=== PATIENT | female | born 1995 | race Two or more races ===

== ENCOUNTER 2016-10-23 10:58 | Emergency (ER) | payer SELFPAY ==
--- NOTE | 2016-10-23 11:28 | ER Document Report ---
ED Medical Screen (RME) - General Chief Complaint: Abdominal Pain >50 Stated Complaint: ABDOMINAL PAIN Time Seen by Provider: 10/23/16 11:26 Mode of Arrival: Ambulatory Information source: Patient - HPI Patient complains to provider of: lower abd pain Onset: Other - pt with c/o bilateral low abd pain for the past several days with vaginal d/c. Denies vaginal bleeding. May be . - Related Data Allergies/Adverse Reactions: No Known Allergies Allergy (Unverified 10/23/16 11:17) Past Medical History - Social History Chew tobacco use (# tins/day): No Frequency of alcohol use: Occasional Drug Abuse: None Renal/ Medical History: Denies: Hx Peritoneal Dialysis Past Surgical History: Reports: Hx Gynecologic Surgery - ovarian cysts removal - Immunizations Hx Diphtheria, Pertussis, Tetanus Vaccination: Yes Physical Exam - Vital signs Vitals: Temp Pulse Resp BP Pulse Ox 99.0 F 89 14 114/69 100 10/23/16 11:12 10/23/16 11:12 10/23/16 11:12 10/23/16 11:12 10/23/16 11:12 Course - Vital Signs Vital signs: Temp Pulse Resp BP Pulse Ox 99.0 F 89 14 114/69 100 10/23/16 11:12 10/23/16 11:12 10/23/16 11:12 10/23/16 11:12 10/23/16 11:12
[2016-10-23 11:58] LABS: ABSOLUTE EOSINOPHILS # (AUTO) 0.1 10^3/uL (0.0-0.6); ABSOLUTE LYMPHOCYTES (AUTO) 2.1 10^3/uL (0.5-4.7); ABSOLUTE MONOCYTES (AUTO) 0.6 10^3/uL (0.1-1.4); ABSOLUTE NEUT (AUTO) 4.9 10^3/uL (1.7-8.2); BASOPHILS % (AUTO) 0.5 % (0-2); HEMOGLOBIN 13.3 g/dL (12.0-15.5); HGB HCT DIFFERENCE 1.9; LYMPHOCYTES % (AUTO) 27.7 % (13-45); MEAN CORPUSCULAR HEMOGLOBIN 30.1 pg (27.0-33.4); MEAN CORPUSCULAR HGB CONC 34.8 g/dL (32.0-36.0); MEAN CORPUSCULAR VOLUME 86 fl (80-97); MONOCYTES % (AUTO) 8.3 % (3-13); RED CELL DISTRIBUTION WIDTH 13.5 % (11.5-14.0); SEGMENTED NEUTROPHILS % (AUTO) 62.5 % (42-78); WHITE BLOOD COUNT 7.8 10^3/uL (4.0-10.5)
[2016-10-23 12:08] LABS: AMORPHOUS SEDIMENT,URINE TRACE /HPF; APPEARANCE,URINE TURBID; BILIRUBIN,URINE NEGATIVE (NEGATIVE); GLUCOSE, URINE NEGATIVE (NEGATIVE); KETONES,URINE NEGATIVE (NEGATIVE); LEUKOCYTE ESTERASE,URINE TRACE (NEGATIVE); NITRITE,URINE NEGATIVE (NEGATIVE); PROTEIN,URINE NEGATIVE (NEGATIVE); URINE SPECIFIC GRAVITY 1.016; UROBILINOGEN,URINE NEGATIVE mg/dL (<2.0)
[2016-10-23 12:11] LABS: ALANINE AMINOTRANSFERASE 25 U/L (9-52); ALBUMIN 4.9 g/dL (3.5-5.0); ALKALINE PHOSPHATASE 78 U/L (38-126); ANION GAP 13 (5-19); ASPARTATE AMINO TRANSFERASE 20 U/L (14-36); BILIRUBIN,DIRECT 0.4 mg/dL (0.0-0.4); BILIRUBIN,TOTAL 0.5 mg/dL (0.2-1.3); BLOOD UREA NITROGEN 12 mg/dL (7-20); CALCIUM 9.8 mg/dL (8.4-10.2); CARBON DIOXIDE 26 mmol/L (22-30); CHLORIDE 102 mmol/L (98-107); CREATININE RESULT 0.78 mg/dL (0.52-1.25); GLUCOSE 77 mg/dL (75-110); POTASSIUM 4.2 mmol/L (3.6-5.0); SODIUM 140.7 mmol/L (137-145); TOTAL PROTEIN 7.6 g/dL (6.3-8.2)
--- NOTE | 2016-10-23 13:06 | ER Document Report ---
ED GI/ - General Chief Complaint: Abdominal Pain >50 Stated Complaint: ABDOMINAL PAIN Time Seen by Provider: 10/23/16 11:26 Mode of Arrival: Ambulatory Information source: Patient - HPI Patient complains to provider of: Pelvic pain Onset: Last week Timing/Duration: Gradual, Persistent Quality of pain: Achy Severity at maximum: Moderate Severity in ED: Moderate Pain Level: 3 Location: Pelvis Vaginal bleeding (Compared to normal period): None Associated symptoms: Vaginal discharge Exacerbated by: Denies Relieved by: Denies Similar symptoms previously: Yes Recently seen / treated by doctor: No Notes: 10/23/16 18:04 She is a 21-year-old female who recently moved to the area from [place], presents to the emergency room complaining of one-week history of pelvic pain with thick white vaginal discharge with a slight odor, she reports a history of irregular menstrual cycles, she has occasional dizziness, denies any fever or chills, no nausea or vomiting, she did have slight dysuria yesterday, patient reports a history of bacterial vaginosis with similar symptoms previously - Related Data Allergies/Adverse Reactions: No Known Allergies Allergy (Unverified 10/23/16 11:17) Home Medications: Current Home Medications Cranberry [Cranberry 400 mg Capsule] 400 mg PO DAILY 10/23/16 [History] L.acidoph,Paracasei, B.lactis [Probiotic] 1 each PO DAILY 10/23/16 [History] Multivitamin [Multivitamins] 1 each PO DAILY 10/23/16 [History] Past Medical History - General Information source: Patient - Social History Smoking Status: Current Every Day Smoker Chew tobacco use (# tins/day): No Frequency of alcohol use: Occasional Drug Abuse: None Family History: Reviewed & Not Pertinent Renal/ Medical History: Denies: Hx Peritoneal Dialysis Past Surgical History: Reports: Hx Gynecologic Surgery - ovarian cysts removal - Immunizations Hx Diphtheria, Pertussis, Tetanus Vaccination: Yes Review of Systems - Review of Systems Constitutional: No symptoms reported EENT: No symptoms reported Cardiovascular: No symptoms reported Respiratory: No symptoms reported Gastrointestinal: No symptoms reported Genitourinary: No symptoms reported Female Genitourinary: See HPI Musculoskeletal: No symptoms reported Skin: No symptoms reported Hematologic/Lymphatic: No symptoms reported Neurological/Psychological: No symptoms reported -: Yes All other systems reviewed and negative Physical Exam - Vital signs Vitals: Temp Pulse Resp BP Pulse Ox 99.0 F 89 14 114/69 100 10/23/16 11:12 10/23/16 11:12 10/23/16 11:12 10/23/16 11:12 10/23/16 11:12 Interpretation: Normal - General General appearance: Appears well, Alert - HEENT Head: Normocephalic, Atraumatic Eyes: Normal Pupils: PERRL - Respiratory Respiratory status: No respiratory distress Chest status: Nontender Breath sounds: Normal Chest palpation: Normal - Cardiovascular Rhythm: Regular Heart sounds: Normal auscultation Murmur: No - Abdominal Inspection: Normal Distension: No distension Bowel sounds: Normal Tenderness: Nontender Organomegaly: No organomegaly - Genitourinary External exam: Normal Speculum exam: Vaginal discharge - milky white Vaginal bleeding: None Bimanuel exam: Adnexal tenderness - left - Back Back: Normal, Nontender - Extremities General upper extremity: Normal inspection, Nontender, Normal color, Normal ROM , Normal temperature General lower extremity: Normal inspection, Nontender, Normal color, Normal ROM , Normal temperature, Normal weight bearing. No: Karuna's sign - Neurological Neuro grossly intact: Yes Cognition: Normal Orientation: AAOx4 [place] Coma Scale Eye Opening: Spontaneous [place] Coma Scale Verbal: Oriented [place] Coma Scale Motor: Obeys Commands [place] Coma Scale Total: 15 Speech: Normal Motor strength normal: LUE, RUE, LLE, RLE Sensory: Normal - Psychological Associated symptoms: Normal affect, Normal mood - Skin Skin Temperature: Warm Skin Moisture: Dry Skin Color: Normal Course - Re-evaluation Re-evalutation: 10/23/16 18:05 Lab findings were discussed with patient at bedside which are unremarkable physical exam findings are consistent with bacterial vaginosis and placement was started on Flagyl for this, advised to follow-up with ENGINEERING SCIENTIST or return if symptoms worsen, patient acknowledges understanding and agreement with this plan 10/23/16 18:07 - Vital Signs Vital signs: Temp Pulse Resp BP Pulse Ox 98.7 F 85 14 112/65 100 10/23/16 14:46 10/23/16 14:46 10/23/16 14:46 10/23/16 14:46 10/23/16 14:46 - Laboratory Result Diagrams: 10/23/16 11:40 10/23/16 11:40 Laboratory results interpreted by me: 10/23/16 11:40 Ur Leukocyte Esterase TRACE H Discharge - Discharge Clinical Impression: Bacterial vaginosis Condition: Stable Disposition: HOME, SELF-CARE Instructions: Vaginosis, Bacterial ([facility]) Additional Instructions: Follow up with your primary care provider in one to 2 days. Return to the emergency room immediately if symptoms worsen or any additional concerns. Prescriptions: Metronidazole [Flagyl 500 mg Tablet] 500 mg PO TID #30 tablet
[2016-10-23 14:48] VITALS: BP 112/65
[2016-10-23 15:17] LABS: CHLAM PCR NOT DETECTED (NOT DETECT)
== END 2016-10-23 14:47 | disposition home or self-care (01) ==
LOC: ER 10:58
DX: N76.0 Acute vaginitis (principal); B96.89 Other specified bacterial agents as the cause of diseases classified elsewhere; R10.2 Pelvic and perineal pain; F17.200 Nicotine dependence, unspecified, uncomplicated
CPT/HCPCS: 36415; 80053; 81001; 81025; 83690; 85025; 87210; 87491; 87591; 99283

== ENCOUNTER 2017-03-09 20:43 | Emergency (ER) | payer SELFPAY ==
[2017-03-09 21:35] LABS: ABSOLUTE BASOPHILS # (AUTO) 0.1 10^3/uL (0.0-0.2); ABSOLUTE EOSINOPHILS # (AUTO) 0.1 10^3/uL (0.0-0.6); ABSOLUTE LYMPHOCYTES (AUTO) 3.2 10^3/uL (0.5-4.7); ABSOLUTE MONOCYTES (AUTO) 0.8 10^3/uL (0.1-1.4); ABSOLUTE NEUT (AUTO) 5.5 10^3/uL (1.7-8.2); BASOPHILS % (AUTO) 0.5 % (0-2); HEMATOCRIT 39.2 % (36.0-47.0); HEMOGLOBIN 13.4 g/dL (12.0-15.5); LYMPHOCYTES % (AUTO) 33.5 % (13-45); MEAN CORPUSCULAR HEMOGLOBIN 30.2 pg (27.0-33.4); MEAN CORPUSCULAR HGB CONC 34.1 g/dL (32.0-36.0); MEAN CORPUSCULAR VOLUME 88 fl (80-97); MONOCYTES % (AUTO) 8.3 % (3-13); PLATELET COUNT 257 10^3/uL (150-450); RED BLOOD COUNT 4.44 10^6/uL (3.72-5.28); RED CELL DISTRIBUTION WIDTH 13.4 % (11.5-14.0); SEGMENTED NEUTROPHILS % (AUTO) 56.7 % (42-78); TOTAL CELLS COUNTED % (AUTO) 100 %; WHITE BLOOD COUNT 9.7 10^3/uL (4.0-10.5)
[2017-03-09 21:44] LABS: APPEARANCE,URINE SLIGHTLY-CLOUDY; BILIRUBIN,URINE NEGATIVE (NEGATIVE); COLOR,URINE YELLOW; GLUCOSE, URINE NEGATIVE (NEGATIVE); KETONES,URINE NEGATIVE (NEGATIVE); LEUKOCYTE ESTERASE,URINE TRACE (NEGATIVE); NITRITE,URINE NEGATIVE (NEGATIVE); PROTEIN,URINE NEGATIVE (NEGATIVE); URINE SPECIFIC GRAVITY 1.031
[2017-03-09 21:54] LABS: ALANINE AMINOTRANSFERASE 30 U/L (9-52); ALBUMIN 4.8 g/dL (3.5-5.0); ALKALINE PHOSPHATASE 82 U/L (38-126); ANION GAP 10 (5-19); ASPARTATE AMINO TRANSFERASE 23 U/L (14-36); BILIRUBIN,DIRECT 0.3 mg/dL (0.0-0.4); BILIRUBIN,TOTAL 0.4 mg/dL (0.2-1.3); BLOOD UREA NITROGEN 9 mg/dL (7-20); CALCIUM 10.2 mg/dL (8.4-10.2); CARBON DIOXIDE 24 mmol/L (22-30); CHLORIDE 104 mmol/L (98-107); GLUCOSE 83 mg/dL (75-110); LIPASE 149.7 U/L (23-300); POTASSIUM 4.1 mmol/L (3.6-5.0); SODIUM 137.8 mmol/L (137-145); TOTAL PROTEIN 7.4 g/dL (6.3-8.2)
--- NOTE | 2017-03-09 22:52 | ER Document Report ---
ED General - General Chief Complaint: Abdominal Pain Stated Complaint: ABDOMINAL PAIN Time Seen by Provider: 03/09/17 22:15 Mode of Arrival: Ambulatory Information source: Patient, Friend TRAVEL OUTSIDE OF THE [place] IN LAST 30 DAYS: No - HPI Notes: Patient is a 21-year-old states that she is overdue for her menstrual cycle by 11 days and reports having 2 positive urine tests at home. The patient reports left lower quadrant pain predominantly that is crampy that she has had for about a week with associated nausea. She denies any vaginal discharge fever chills or back pain. The patient reports this is her first . The patient denies any concern for STD. She does report some chronic constipation stating that she only has a bowel movement every 3-4 days on average. The patient denies any significant back pain. She reports no vaginal discharge or bleeding. She denies any fever or chills. - Related Data Allergies/Adverse Reactions: No Known Allergies Allergy (Unverified 10/23/16 11:17) Past Medical History - General Information source: Patient, Parent - Social History Smoking Status: Never Smoker Frequency of alcohol use: None Drug Abuse: None Lives with: Friend Family History: Reviewed & Not Pertinent Renal/ Medical History: Denies: Hx Peritoneal Dialysis Past Surgical History: Reports: Hx Gynecologic Surgery - ovarian cysts removal - Immunizations Hx Diphtheria, Pertussis, Tetanus Vaccination: Yes Review of Systems - Review of Systems Notes: REVIEW OF SYSTEMS: CONSTITUTIONAL : Denies fever, chills, or sweats. Denies recent illness. EENT: Denies eye, ear, throat, or mouth pain or symptoms. Denies nasal or sinus congestion or discharge. Denies throat, tongue, or mouth swelling or difficulty swallowing. CARDIOVASCULAR: Denies chest pain. Denies palpitations or racing or irregular heart beat. Denies ankle edema. RESPIRATORY: Denies cough, cold, or chest congestion. Denies shortness of breath, difficulty breathing, or wheezing. GASTROINTESTINAL: Denies abdominal distention. Denies vomiting, or diarrhea. Denies blood in vomitus, stools, or per rectum. Denies black, tarry stools. Patient does report some nausea. GENITOURINARY: Denies difficulty urinating, painful urination, burning, frequency, blood in urine, or discharge. FEMALE GENITOURINARY: Denies vaginal bleeding, heavy or abnormal periods, irregular periods. Denies vaginal discharge or odor. MUSCULOSKELETAL: Denies back or neck pain or stiffness. Denies joint pain or swelling. SKIN: Denies rash, lesions or sores. HEMATOLOGIC : Denies easy bruising or bleeding. LYMPHATIC: Denies swollen, enlarged glands. NEUROLOGICAL: Denies confusion or altered mental status. Denies passing out or loss of consciousness. Denies dizziness or lightheadedness. Denies headache. Denies weakness or paralysis or loss of use of either side. Denies problems with gait or speech. Denies sensory loss, numbness, or tingling. Denies seizures. PSYCHIATRIC: Denies anxiety or stress. Denies depression, suicidal ideation, or homicidal ideation. ALL OTHER SYSTEMS REVIEWED AND NEGATIVE. Dictation was performed using [employer] voice recognition software Physical Exam - Vital signs Vitals: Temp Pulse Resp BP Pulse Ox 98.4 F 93 18 122/75 100 03/09/17 21:00 03/09/17 21:00 03/09/17 21:00 03/09/17 21:00 03/09/17 21:00 - Notes Notes: PHYSICAL EXAMINATION: GENERAL: Well-appearing, well-nourished and in no acute distress. HEAD: Atraumatic, normocephalic. EYES: Pupils equal round and reactive to light, extraocular movements intact, conjunctiva are normal. ENT: Nares patent, oropharynx clear without exudates. Moist mucous membranes. NECK: Normal range of motion, supple without lymphadenopathy LUNGS: Breath sounds clear to auscultation bilaterally and equal. No wheezes rales or rhonchi. HEART: Regular rate and rhythm without murmurs ABDOMEN: Soft, nondistended abdomen. No guarding, no rebound. No masses appreciated. Minimal left lower quadrant to left adnexal tenderness. Female : deferred Musculoskeletal: Normal range of motion, no pitting or edema. No cyanosis. No CVA tenderness. NEUROLOGICAL: Cranial nerves grossly intact. Normal speech, normal gait. Normal sensory, motor exams PSYCH: Normal mood, normal affect. SKIN: Warm, Dry, normal turgor, no rashes or lesions noted. Course - Re-evaluation Re-evalutation: 03/10/17 01:34 Pelvic ultrasound showed a 5 week 5 day intrauterine without evidence for miscarriage or bleeding. There is no evidence for ectopic. The patient had a right ovarian cyst with a corpus luteum. There is no evidence for torsion or other abnormality. Discussion was undertaken with the patient and her significant other regarding the findings. There is no evidence for ectopic or threatened miscarriage. Patient will follow up with local WEAPONS OFFICER. No evidence for significant dehydration or other abnormality. No obvious urinary tract infection. A urine culture is ordered. 03/10/17 01:40 - Vital Signs Vital signs: Temp Pulse Resp BP Pulse Ox 98.4 F 93 18 122/75 100 03/09/17 21:00 03/09/17 21:00 03/09/17 21:00 03/09/17 21:00 03/09/17 21:00 - Laboratory Result Diagrams: 03/09/17 21:25 03/09/17 21:25 Laboratory results interpreted by me: 03/09/17 03/09/17 21:20 21:25 Beta HCG, Quant 57877.00 H Urine Urobilinogen 2.0 H Ur Leukocyte Esterase TRACE H Urine Ascorbic Acid 40 H Urine HCG, Qual POSITIVE H Discharge - Discharge Clinical Impression: Abdominal pain affecting , Nausea Qualifiers: Weeks of gestation: less than 8 weeks Qualified Code(s): Z3A.01 - Less than 8 weeks gestation of Constipation Qualifiers: Constipation type: unspecified constipation type Qualified Code(s): K59.00 - Constipation, unspecified Condition: Stable Disposition: HOME, SELF-CARE Instructions: Abdominal Pain ([facility]), Constipation ([facility]), ([facility]), Hyperemesis Gravidarum ([facility]) Additional Instructions: Drink plenty of fluids. Follow-up with local WEAPONS OFFICER. Return in case of bleeding or severe pain or any fever. You may take milk of magnesia once per day and take Metamucil safely for constipation while you are . Prescriptions: Ondansetron [Zofran Odt 4 mg Tablet] 1 tab PO Q8HP PRN #10 tab.rapdis PRN Reason: For Nausea/Vomiting No122/Iron/Folic Acid [ Multi Tablet] 1 each PO DAILY #60 tablet
--- NOTE | 2017-03-10 01:09 | RADIOLOGY REPORT (SQ) ---
EXAM DESCRIPTION: U/S OB TRANSVAG W/DOPPLER CLINICAL HISTORY: 21 years, Female, with LLQ pain COMPARISON: None. TECHNIQUE: Transvaginal. LIMITATIONS: None. FINDINGS: Intrauterine gestation includes a gestational sac and yolk sac. No pole and no cardiac activity at this time. Based on mean sac diameter 0.9 cm, gestational age is five weeks and five days with an KRISTIN of November 05, 2017. 3.3 cm right ovarian with likely 2.1-cm corpus luteul cyst (for which no dedicated followup imaging is recommended), 3.0 cm left ovary appear unremarkable. Cervical length is 2.0 cm. There is trace free fluid in the posterior cul-de-sac. IMPRESSION: Early intrauterine gestation measures 5w5d. No pole and no cardiac activity identified at this time.
[2017-03-10 01:15] LABS: CHLAM PCR NOT DETECTED (NOT DETECT); GON PCR NOT DETECTED (NOT DETECT)
[2017-03-10] MEDS ORDERED: MAGNESIUM HYDROXIDE SUSP 30 ML UDCUP PO ONE (01:31)
[2017-03-10 02:05] VITALS: BP 127/61
== END 2017-03-10 02:04 | disposition home or self-care (01) ==
LOC: ER 20:43
DX: O26.891 Other specified pregnancy related conditions, first trimester (principal); K59.00 Constipation, unspecified; R10.32 Left lower quadrant pain; R11.0 Nausea; Z3A.01 Less than 8 weeks gestation of pregnancy
CPT/HCPCS: 99284; 36415; 87086; 84702; 83690; 85025; 81025; 80053; 81001; 87491; 87591; 76817; 93976; J3490

== ENCOUNTER → 2017-04-13 | Outpatient (CLI) | payer SELFPAY ==
--- NOTE | 2017-04-13 14:21 | RADIOLOGY REPORT (SQ) ---
EXAM DESCRIPTION: U/S [id number] TRNABD 1GES W/ODOP COMPLETED DATE/TIME: 04/13/2017 2:12 pm REASON FOR STUDY: ENCOUNTER FOR SUPERVISION OF NORMAL FIRST , FIRST TRIMESTER Z34.01 ENCNT R FOR SUPRVSN OF NORMAL FIRST PREG, FIRST TRIMES COMPARISON: 03/10/2017. TECHNIQUE: Transabdominal static and realtime grayscale images acquired of the pelvis. Additional se lected spectral and color Doppler images recorded. All images stored on PACs. bHCG: Not applicable. LIMITATIONS: None. FINDINGS: FETUS: Single intrauterine . EGA: 5 week 6 day. Gestational sac enlarged out of proportion to the pole. There is also some debris noted within the gestational sac. KRISTIN: 12/08/2017. FHR: No cardiac activity detected. SUBCHORIONIC BLEED: No. SIZE OF BLEED: Not applicable. UTERUS: No masses. No anomalies. RIGHT ADNEXA: Ovary not identified. No adnexal free fluid. No adnexal masses. LEFT ADNEXA: Ovary not identified. No adnexal free fluid. No adnexal masses. FREE FLUID: None. OTHER: No other significant finding. IMPRESSION: Single INTRAUTERINE . EGA 5 WEEK 6 DAY. NO CARDIAC ACTIVITY DETECTED. NO GROWTH SINCE THE LAST STUDY. FINDINGS CONSISTENT WITH DEMISE. Trimester of : First - 0 to 13 weeks. TECHNICAL DOCUMENTATION: JOB ID: [id number] [employer]- All Rights Reserved Reading location - IP/workstation name: [facility]
== END ==
LOC: RAD 12:45
PROVIDERS: ATTEND Nurse Practitioner Women's Health
DX: O36.80X0 Pregnancy with inconclusive fetal viability, not applicable or unspecified (principal)
CPT/HCPCS: 76801

== ENCOUNTER → 2017-04-14 | Outpatient (CLI) | payer SELFPAY | LOC: OCH 10:40 | PROVIDERS: ATTEND Nurse Practitioner Women's Health | DX: O36.80X0 Pregnancy with inconclusive fetal viability, not applicable or unspecified (principal) | CPT/HCPCS: 36415; 84702 ==

== ENCOUNTER 2017-04-16 20:04 | Emergency (ER) | payer SELFPAY ==
[2017-04-16 21:48] LABS: ABSOLUTE BASOPHILS # (AUTO) 0.1 10^3/uL (0.0-0.2); ABSOLUTE EOSINOPHILS # (AUTO) 0.1 10^3/uL (0.0-0.6); ABSOLUTE LYMPHOCYTES (AUTO) 2.8 10^3/uL (0.5-4.7); ABSOLUTE MONOCYTES (AUTO) 0.8 10^3/uL (0.1-1.4); BASOPHILS % (AUTO) 0.5 % (0-2); EOSINOPHILS % (AUTO) 1.2 % (0-6); HEMATOCRIT 37.1 % (36.0-47.0); HEMOGLOBIN 12.6 g/dL (12.0-15.5); LYMPHOCYTES % (AUTO) 28.9 % (13-45); MEAN CORPUSCULAR HEMOGLOBIN 30.1 pg (27.0-33.4); MEAN CORPUSCULAR VOLUME 88 fl (80-97); MONOCYTES % (AUTO) 8.6 % (3-13); PLATELET COUNT 234 10^3/uL (150-450); RED CELL DISTRIBUTION WIDTH 13.1 % (11.5-14.0); SEGMENTED NEUTROPHILS % (AUTO) 60.8 % (42-78); TOTAL CELLS COUNTED % (AUTO) 100 %; WHITE BLOOD COUNT 9.8 10^3/uL (4.0-10.5)
[2017-04-17] MEDS ORDERED: RINGERS SOLUTION,LACTATED 1,000 ML IV ONE (00:18)
--- NOTE | 2017-04-17 01:13 | ER Document Report ---
ED General - General Chief Complaint: Vag Bleeding, +preg <12wks Stated Complaint: VAGINAL BLEEDING Time Seen by Provider: 04/17/17 00:16 TRAVEL OUTSIDE OF THE [place] IN LAST 30 DAYS: No - Related Data Allergies/Adverse Reactions: No Known Allergies Allergy (Unverified 10/23/16 11:17) Past Medical History - General Last Menstrual Period: 01/26/17 - Social History Smoking Status: Never Smoker Chew tobacco use (# tins/day): No Frequency of alcohol use: None Drug Abuse: None Family History: Reviewed & Not Pertinent Patient has suicidal ideation: No Patient has homicidal ideation: No Renal/ Medical History: Denies: Hx Peritoneal Dialysis Past Surgical History: Reports: Hx Gynecologic Surgery - ovarian cysts removal - Immunizations Hx Diphtheria, Pertussis, Tetanus Vaccination: Yes Review of Systems - Review of Systems Constitutional: No symptoms reported EENT: No symptoms reported Cardiovascular: No symptoms reported Respiratory: No symptoms reported Gastrointestinal: No symptoms reported Genitourinary: No symptoms reported Female Genitourinary: See HPI Musculoskeletal: No symptoms reported Skin: No symptoms reported Hematologic/Lymphatic: No symptoms reported Neurological/Psychological: No symptoms reported Physical Exam - Vital signs Vitals: Temp Pulse Resp BP Pulse Ox 98.5 F 86 16 113/70 99 04/16/17 20:31 04/16/17 20:31 04/16/17 20:31 04/16/17 20:31 04/16/17 20:31 - Notes Notes: PHYSICAL EXAMINATION: GENERAL: Well-appearing, well-nourished and in no acute distress. HEAD: Atraumatic, normocephalic. EYES: Pupils equal round and reactive to light, extraocular movements intact, conjunctiva are normal. ENT: Nares patent, oropharynx clear without exudates. Moist mucous membranes. NECK: Normal range of motion, supple without lymphadenopathy LUNGS: Breath sounds clear to auscultation bilaterally and equal. No wheezes rales or rhonchi. HEART: Regular rate and rhythm without murmurs ABDOMEN: Soft, nontender, nondistended abdomen. No guarding, no rebound. No masses appreciated. Female : Male external female genitalia. Vaginal vault contains no blood but it does have brownish thick discharge. Office is intact. There is mild uterine tenderness with bimanual exam. Musculoskeletal: Normal range of motion, no pitting or edema. No cyanosis. NEUROLOGICAL: Cranial nerves grossly intact. Normal speech, normal gait. Normal sensory, motor exams PSYCH: Normal mood, normal affect. SKIN: Warm, Dry, normal turgor, no rashes or lesions noted. Course - Re-evaluation Re-evalutation: 04/17/17 01:11 Patient ultrasound on 04/13/2017 showed no growth compared to the ultrasound of . There is no cardiac activity. It was consistent with demise. HCG is decreasing. Patient states she has follow-up with health department. 04/17/17 01:47 Talk to the patient at length. I went over the ultrasound findings from [facility] as well as 04/13/2017. States she is supposed to follow-up the health department tomorrow. I also told her that her hormone level is decreasing. Told patient to return to the emergency department if she has fevers increased abdominal pain or any other concerns. Patient was Rh+ so she did not require RhoGam. 04/17/17 03:19 Labs- All tests 24 hr 04/16/17 04/16/17 04/16/17 21:35 21:35 21:35 WBC 9.8 RBC 4.20 Hgb 12.6 Hct 37.1 MCV 88 MCH 30.1 MCHC 34.0 RDW 13.1 Plt Count 234 Seg Neutrophils % 60.8 Lymphocytes % 28.9 Monocytes % 8.6 Eosinophils % 1.2 Basophils % 0.5 Absolute Neutrophils 6.0 Absolute Lymphocytes 2.8 Absolute Monocytes 0.8 Absolute Eosinophils 0.1 Absolute Basophils 0.1 Beta HCG, Quant 19251.00 H Total Beta HCG POSITIVE Trichomonas (Wet Prep) Vaginal WBC Vaginal RBC Vaginal Yeast Chlamydia DNA (PCR) N.gonorrhoeae DNA (PCR) Blood Type O POSITIVE Antibody Screen NEGATIVE Rhogam Indicated RHOGAM REQUESTED 04/17/17 04/17/17 01:08 01:08 WBC RBC Hgb Hct MCV MCH MCHC RDW Plt Count Seg Neutrophils % Lymphocytes % Monocytes % Eosinophils % Basophils % Absolute Neutrophils Absolute Lymphocytes Absolute Monocytes Absolute Eosinophils Absolute Basophils Beta HCG, Quant Total Beta HCG Trichomonas (Wet Prep) NO TRICHOMONAS SEEN Vaginal WBC 1+ WBCS SEEN Vaginal RBC 1+ RBCS SEEN Vaginal Yeast NO YEAST SEEN Chlamydia DNA (PCR) NOT DETECTED N.gonorrhoeae DNA (PCR) NOT DETECTED Blood Type Antibody Screen Rhogam Indicated - Vital Signs Vital signs: Temp Pulse Resp BP Pulse Ox 97.4 F 88 16 121/57 L 98 04/17/17 02:13 04/17/17 02:13 04/17/17 02:13 04/17/17 02:13 04/17/17 02:13 - Laboratory Result Diagrams: 04/16/17 21:35 Laboratory results interpreted by me: 04/16/17 21:35 Beta HCG, Quant 26680.00 H Discharge - Discharge Clinical Impression: Miscarriage Disposition: HOME, SELF-CARE Instructions: Miscarriage ([facility]) Additional Instructions: Follow up with your physician tomorrow for further care or return to the ED IMMEDIATELY if symptoms worsen or new concerns occur. If you cannot afford to follow up with your primary care physician a list of low cost clinics have been provided at the end of your discharge papers as well. Call your PROCESSING ASSOCIATE doctor tomorrow as we discussed for follow-up and plan. The emergency department if you have high fevers, vomiting, abdominal pain or any other concerns. Referrals: PUJA CHU MD [Primary Care Provider] - Follow up as needed
[2017-04-17 01:37] LABS: T.VAGINALIS (WET MOUNT) NO TRICHOMONAS SEEN
[2017-04-17 02:16] VITALS: BP 121/57
[2017-04-17 03:09] LABS: CHLAM PCR NOT DETECTED (NOT DETECT); GON PCR NOT DETECTED (NOT DETECT)
[2017-04-17 10:44] LABS: YEAST (WET MOUNT) NO YEAST SEEN
[2017-04-17 10:45] LABS: RBCS (WET MOUNT) 1+ RBCS SEEN; WBCS (WET MOUNT) 1+ WBCS SEEN
== END 2017-04-17 02:17 | disposition home or self-care (01) ==
LOC: ER 20:04
DX: O03.9 Complete or unspecified spontaneous abortion without complication (principal)
CPT/HCPCS: 99284; 96365; 86900; 86901; 36415; 87210; 86850; 84702; 85025; 87491; 87591; J7120

== ENCOUNTER 2017-04-21 07:08 | Emergency (ER) | payer SELFPAY ==
[2017-04-21] MEDS ORDERED: NORMAL SALINE 1000 ML 1,000 ML IV ONE ×3 (07:24→12:19)
[2017-04-21] MEDS ORDERED: KETOROLAC TROMETHAMINE INJ/PF 30 MG/1 ML SDV IV ONE (07:24)
--- NOTE | 2017-04-21 07:24 | ER Document Report ---
ED GI/ - General Chief Complaint: Vag Bleeding, +preg <12wks Stated Complaint: VAGINAL BLEEDING Time Seen by Provider: 04/21/17 07:21 Notes: The patient is a 21-year-old female, at 10 weeks by last menstrual period, presents with increased vaginal bleeding and passing clots. She was told that she had demise due to no growth last week. She began to pass golf ball size clots earlier this morning. Patient denies syncope , chest pain, vomiting, dysuria or flank pain. TRAVEL OUTSIDE OF THE [place] IN LAST 30 DAYS: No - Related Data Allergies/Adverse Reactions: No Known Allergies Allergy (Unverified 10/23/16 11:17) Past Medical History - General Information source: Patient - Social History Smoking Status: Unknown if Ever Smoked Family History: Reviewed & Not Pertinent Renal/ Medical History: Denies: Hx Peritoneal Dialysis Past Surgical History: Reports: Hx Gynecologic Surgery - ovarian cysts removal - Immunizations Hx Diphtheria, Pertussis, Tetanus Vaccination: Yes Review of Systems - Review of Systems Notes: REVIEW OF SYSTEMS: CONSTITUTIONAL: -fevers, -chills EENT: -eye pain, -difficulty swallowing, -nasal congestion CARDIOVASCULAR: -chest pain, -syncope. RESPIRATORY: -cough, -SOB GASTROINTESTINAL: +abdominal pain, -nausea, -vomiting, -diarrhea GENITOURINARY: -dysuria, -hematuria, +vaginal bleeding MUSCULOSKELETAL: -back pain, -neck pain SKIN: -rash or skin lesions. HEMATOLOGIC: -easy bruising or bleeding. LYMPHATIC: -swollen, enlarged glands. NEUROLOGICAL: -altered mental status or loss of consciousness, -headache, - neurologic symptoms PSYCHIATRIC: -anxiety, -depression. ALL OTHER SYSTEMS REVIEWED AND NEGATIVE. Physical Exam - Vital signs Vitals: Temp 97.3 F 04/21/17 07:12 - Notes Notes: PHYSICAL EXAMINATION: GENERAL: Uncomfortable. HEAD: Atraumatic, normocephalic. EYES: Pupils equal round and reactive to light, extraocular movements intact, sclera anicteric, conjunctiva are normal. ENT: nares patent, oropharynx clear without exudates. Moist mucous membranes. NECK: Normal range of motion, supple without lymphadenopathy LUNGS: Breath sounds clear to auscultation bilaterally and equal. No wheezes rales or rhonchi. HEART: Tachycardia, regular rhythm. ABDOMEN: Soft, mild suprapubic tenderness, normoactive bowel sounds. No guarding, no rebound. No masses appreciated. : Active bleeding from open cervix. No clots or lacerations seen. EXTREMITIES: Normal range of motion, no pitting or edema. No cyanosis. NEUROLOGICAL: Cranial nerves grossly intact. Normal speech, normal gait. Normal sensory and motor exams. SKIN: Warm, Dry, normal turgor, no rashes or lesions noted. Course - Re-evaluation Re-evalutation: Pt seen immediately on arrival due to tachycardia and active bleeding. Patient passed a gestational sac in the ER and her bleeding slowed down after IV TXA and IV fluids. Patient became slightly hypotensive down to 90/50, but this improved after IV fluids. Her tachycardia also resolved. Patient's hemoglobin dropped from 12.6 down to 10.9 over the past 5 days. 04/21/17 08:[address] King (OB production floater). She will be down to see patient after she finishes a surgery. Pt is more HD stable at this time and her pain and nausea are under control. 04/21/17 09:00 Dr. King saw the patient and removed some decidual tissue. Recommending an ultrasound to assess for retained POC and d/c home if no POC remain with NSAIDs and Percocets. Pt's pain and nausea continue to remain under control. Tachycardia has revolved. 04/21/17 12:10 Call from Radiology. No intrauterine visualized and some residual trophoblastic tissue or blood clots are visualized. Patient's bleeding has slowed down and her pain and nausea are under control. Spoke to Dr. King and she will see the patient in her office this week for a recheck of her symptoms and to possibly discuss a D&C. She is also requesting Doxycycline 100 mg bd for 5 days since she used instrumentation during her exam. Spoke to patient about the plan and she understands. Given very strict return precautions. - Vital Signs Vital signs: Temp Pulse Resp BP Pulse Ox 97.3 F 11 L 97/51 L 100 04/21/17 07:12 04/21/17 12:02 04/21/17 12:02 04/21/17 12:02 - Laboratory Result Diagrams: 04/21/17 07:30 Laboratory results interpreted by me: 04/21/17 04/21/17 07:30 07:30 WBC 13.5 H RBC 3.66 L Hgb 10.9 L Hct 32.0 L Absolute Neutrophils 9.9 H Beta HCG, Quant 2956.60 H - Diagnostic Test Radiology reviewed: Image reviewed, Reports reviewed Radiology results interpreted by me: US: NO VISUALIZED INTRA- OR EXTRAUTERINE . There is thickening of the endometrium, 2.3 x 1.7 cm along the lower uterine segment. This could represent residual trophoblastic tissue, blood clot, or molar . FOLLOW-UP ULTRASOUND AND SERIAL BHCG LEVELS STRONGLY RECOMMENDED TO ACCURATELY ASSESS STATUS. Discharge - Discharge Clinical Impression: Vagina bleeding, Miscarriage Condition: Stable Disposition: HOME, SELF-CARE Additional Instructions: You must follow-up with Dr. King in 2-3 days for a recheckj f your symptoms. Take the doxyclycine as instructed. Motrin around the clock for pain and Percocet for severe pain. Zofran for any nausea. You will have some vaginal bleeding, but return to the ER if you have worsening bleeding or any other concerns. FOLLOW-UP CARE: If you have been referred to a physician for follow-up care, call the physician s office for an appointment as you were instructed or within the next two days. If you experience worsening or a significant change in your symptoms (very heavy bleeding with large clots of blood, passage of tissue, more severe abdominal / pelvic pain or cramping, feeling faint or severe weakness, fever, etc.), notify the physician immediately or return to the Emergency Department at any time for re-evaluation. OBSTETRIC-GYNECOLOGIC (OB-TREASURY ACCOUNTANT) PHYSICIANS IN [place]: [facility] [address] [place], [place] [phone] [facility] [address] [place] [address] [phone] For active duty and dependents diagnosed with a threatened or miscarriage, you should follow up in the following manner: Standard patients who have a local civilian provider should follow up with that provider. Patients of the Family Practice Clinic should call your Team Nurse at 8: 00 am the following morning for further instructions. If you are neither a Standard patient nor a patient of the Family Practice Clinic, you should follow up at the [facility] ([facility]) . Patients already enrolled in the [facility] OB Clinic, Prime patients not assigned to the Family Practice Clinic, and Active Duty patients not assigned to [facility] should report to the [facility] Lab at 8:00 am the next morning that the [facility] OB Clinic is open and then you will be seen in the OB Clinic at 11:00 am. Prescriptions: Doxycycline Hyclate 100 mg PO BID #10 capsule Ibuprofen [Motrin 600 Mg Tablet] 600 mg PO Q6H #15 tablet Oxycodone HCl/Acetaminophen [Percocet 5-325 mg Tablet] 1 - 2 tab PO Q4H PRN #7 tablet PRN Reason: Referrals: ESTEFANIA KING MD [ACTIVE STAFF] - Follow up as needed
[2017-04-21] MEDS ORDERED: ONDANSETRON HCL INJ/PF 4 MG/2 ML SDV IV ONE (07:31)
[2017-04-21] MEDS ORDERED: HYDROMORPHONE HCL INJ/PF 2 MG/ML AMPULE IV ONE (07:38)
[2017-04-21 07:42] LABS: ABSOLUTE BASOPHILS # (AUTO) 0.1 10^3/uL (0.0-0.2); ABSOLUTE EOSINOPHILS # (AUTO) 0.1 10^3/uL (0.0-0.6); ABSOLUTE LYMPHOCYTES (AUTO) 2.6 10^3/uL (0.5-4.7); ABSOLUTE MONOCYTES (AUTO) 0.9 10^3/uL (0.1-1.4); ABSOLUTE NEUT (AUTO) 9.9 10^3/uL (1.7-8.2); BASOPHILS % (AUTO) 0.4 % (0-2); EOSINOPHILS % (AUTO) 0.5 % (0-6); HEMOGLOBIN 10.9 g/dL (12.0-15.5); LYMPHOCYTES % (AUTO) 19.3 % (13-45); MEAN CORPUSCULAR HEMOGLOBIN 29.7 pg (27.0-33.4); MEAN CORPUSCULAR VOLUME 87 fl (80-97); MONOCYTES % (AUTO) 6.4 % (3-13); PLATELET COUNT 299 10^3/uL (150-450); RED BLOOD COUNT 3.66 10^6/uL (3.72-5.28); RED CELL DISTRIBUTION WIDTH 12.9 % (11.5-14.0); SEGMENTED NEUTROPHILS % (AUTO) 73.4 % (42-78); TOTAL CELLS COUNTED % (AUTO) 100 %; WHITE BLOOD COUNT 13.5 10^3/uL (4.0-10.5)
[2017-04-21] MEDS ORDERED: TRANEXAMIC ACID INJ/PF 1,000 MG/10 ML SDV IV ONE (07:45)
[2017-04-21] MEDS ORDERED: METOCLOPRAMIDE HCL INJ/PF 10 MG/2 ML SDV IV ONE (08:30)
--- NOTE | 2017-04-21 12:00 | RADIOLOGY REPORT (SQ) ---
EXAM DESCRIPTION: U/S NON-OB PELVIS TV W/O DOP COMPLETED DATE/TIME: 04/21/2017 11:41 am REASON FOR STUDY: vaginal bleeding, 10 weeks, SAB COMPARISON: OB ultrasound 04/13/2017 TECHNIQUE: Endovaginal static and realtime grayscale images acquired of the pelvis. Additional selec zach spectral and color Doppler images recorded. All images stored on PACs. CHRISTIANACAREG: Today, 2,956 LIMITATIONS: None. FINDINGS: UTERUS: No visualized intrauterine . Uterus measures 9.8 x 5.1 x 4.6 cm in size. There is no intrauterine gestational sac identified. There is abnormal focal thickening of the endom etrial along the lower uterine segment, with blurring of tissue planes between endometrium and myomet rium. This area measures 2.3 x 1.7 cm in size and likely represents residual trophoblastic tissue. Molar or retained products of conception could not be excluded. This report was discussed with Dr. Brady, 1145 hours 04/21/2017. RIGHT ADNEXA: Normal ovary with normal vascular flow. Right ovary 3.8 x 1.9 x 1.5 cm in size. No adnexal free fluid. No adnexal masses. LEFT ADNEXA: Normal ovary with normal vascular flow. Left ovary 2.3 x 2.2 x 2.1 cm in size. No adnexal free fluid. No adnexal masses. FREE FLUID: Trace pelvic cul-de-sac fluid OTHER: No other significant finding. IMPRESSION: NO VISUALIZED INTRA- OR EXTRAUTERINE . There is thickening of the endometrium, 2.3 x 1.7 cm along the lower uterine segment. This could represent residual trophoblastic tissue, b lood clot, or molar . FOLLOW-UP ULTRASOUND AND SERIAL BHCG LEVELS STRONGLY RECOMMENDED TO ACCURATELY ASSESS STATU S. Findings discussed with the emergency room attending physician as above TECHNICAL DOCUMENTATION: JOB ID: [id number] [employer]- All Rights Reserved Reading location - IP/workstation name: [email or web address]
[2017-04-21] MEDS ORDERED: DOXYCYCLINE HYCLATE 100 MG TABLET PO ONE (12:20)
[2017-04-21 13:02] VITALS: BP 103/66
== END 2017-04-21 13:11 | disposition home or self-care (01) ==
LOC: ER 07:08
DX: O03.9 Complete or unspecified spontaneous abortion without complication (principal); R00.0 Tachycardia, unspecified
CPT/HCPCS: 99284; 96361; 96374; 96375; 86900; 86901; 36415; 86850; 84702; 85025; 88305 ×2; 76830; J1885; J2765; J1170; J2405; J7030; J3490

== ENCOUNTER → 2017-08-27 | Outpatient (CLI) | payer SELFPAY ==
--- NOTE | 2017-08-27 15:58 | RADIOLOGY REPORT (SQ) ---
EXAM DESCRIPTION: U/S GB1LFAL TRNABD 1GES W/ODOP COMPLETED DATE/TIME: 08/27/2017 3:27 pm REASON FOR STUDY: ENCOUNTER FOR SUPRVSN OF NORMAL , FIRST TRIMESTER Z34.81 ENCOUNTER FOR S UPRVSN OF NORMAL , FIRST TRIM COMPARISON: None. TECHNIQUE: Transabdominal static and realtime grayscale images acquired of the pelvis. Additional se lected spectral and color Doppler images recorded. All images stored on PACs. bHCG: Not available CLINICAL DATES: Last menses 06/25/2017 LIMITATIONS: None. FINDINGS: FETUS: Living intrauterine . ULTRASOUND EGA: 9 weeks 1 day ULTRASOUND KRISTIN: 03/31/2017 CRL: 2.4 cm FHR: 173 beats per minute. SUBCHORIONIC BLEED: No SIZE OF BLEED: Not applicable. UTERUS: Uterus is 10 x 9 x 7 cm in size. Along the rightward uterine fundus, a Tanner Aguilar contrac tion is present, which resolved by the end of this study. CERVICAL LENGTH: 3.6 cm in length. Closed. RIGHT ADNEXA: Not visualized due to adnexal bowel gas LEFT ADNEXA: Not visualized due to adnexal bowel gas FREE FLUID: None. OTHER: No other significant finding. IMPRESSION: LIVING INTRAUTERINE . EGA 9 weeks 1 day Trimester of : First - 0 to 13 weeks. TECHNICAL DOCUMENTATION: JOB ID: [id number] [employer]- All Rights Reserved Reading location - IP/workstation name: [email or web address]
== END ==
LOC: RAD 15:01
PROVIDERS: ATTEND Nurse Practitioner Women's Health
DX: Z34.81 Encounter for supervision of other normal pregnancy, first trimester (principal)
CPT/HCPCS: 76801